=== PATIENT | female | born 1995 | race Caucasian/White ===

== ENCOUNTER 2022-02-28 12:55 | Emergency (ER) | payer SELFPAY | END 2022-02-28 14:43 | disposition home or self-care (01) | LOC: CSHERS 12:55 | DX: B86 Scabies (principal) | CPT/HCPCS: 99282 ==

== ENCOUNTER 2022-08-10 09:53 | Emergency (ER) | payer SELFPAY | END 2022-08-10 10:55 | disposition home or self-care (01) | LOC: CSHERS 09:53 | DX: B02.9 Zoster without complications (principal) | CPT/HCPCS: 99282 ==

== ENCOUNTER 2023-04-02 13:49 | Emergency (ER) | payer SELFPAY | END 2023-04-02 15:03 | disposition home or self-care (01) | LOC: CSHERS 13:49 | DX: M65.4 Radial styloid tenosynovitis [de Quervain] (principal) | CPT/HCPCS: 29125 ==

== ENCOUNTER 2023-04-21 09:51 | Emergency (ER) | payer SELFPAY ==
[2023-04-21] MEDS ORDERED: Iopamidol 300 61% 100 ML VIAL FS ONE (10:40)
[2023-04-21] MEDS ORDERED: Proparacaine 0.5% Opth 15 ML BOT ONE (11:59)
[2023-04-21] MEDS ORDERED: Ketorolac Tromethamine 30 MG/ML VIAL ONE (11:59)
[2023-04-21] MEDS ORDERED: Fluorescein Opthalmic Strip ONE (11:59)
[2023-04-21 12:29] LABS: #Basophils 0.1 10x3/uL (0.0-0.2); #Eosinphils 0.1 10x3/uL (0.0-0.5); #Monocytes 0.6 10x3/uL (0.0-1.1); #Neutrophils 6.9 10x3/uL (1.5-8.4); %Basophils 0.6 % (0.0-2.0); %Eosinophils 0.7 % (0.0-6.0); %Lymphocytes 22.2 % (18.0-47.0); %Monocytes 5.7 % (0.0-10.0); %Neutrophils 70.6 % (40.0-75.0); Hemoglobin 12.2 g/dL (12.0-15.5); Mean Corpuscular Hemoglobin 28.1 pg (27.0-33.0); Mean Corpuscular Volume 85.3 fl (81.6-98.3); Mean Platelet Volume 11.1 fl (7.4-10.4); Platelet Count 346 10x3/uL (150-450); Red Blood Cell (RBC) Count 4.34 10x6/uL (3.90-5.03); White Blood Cell (WBC) Count 9.8 10x3/uL (3.5-10.5)
[2023-04-21 12:35] LABS: Pregnancy Test - Urine (BHCG) Negative (Negative); Pregu Control Background? CLEAR/WHITE (CLR/WHITE); Pregu Control Bar Appear? YES (CONTROL BAR)
[2023-04-21 12:41] LABS: ALT (SGPT) 9 U/L (8-55); AST (SGOT) 12 U/L (5-34); Albumin 4.3 g/dL (3.5-5.0); Alkaline Phosphatase 66 U/L (40-110); Anion Gap 15 mmol/L (10-20); BUN (Urea Nitrogen) 6 mg/dL (7.0-18.7); Bilirubin, Total 0.4 mg/dL (0.2-1.2); Calc. Creatinine Clearance 0 mL/min (70-130); Calcium 9.7 mg/dL (7.8-10.44); Carbon Dioxide 25 mmol/L (22-29); Chloride 104 mmol/L (98-107); Estimated GFR 110; Globulin 3.7 g/dL (2.4-3.5); Glucose 102 mg/dL (70-105); Potassium 4.2 mmol/L (3.5-5.1); Sodium 140 mmol/L (136-145)
== END 2023-04-21 14:39 | disposition home or self-care (01) ==
LOC: CSHERS 09:51
DX: H04.322 Acute dacryocystitis of left lacrimal passage (principal); J32.9 Chronic sinusitis, unspecified
CPT/HCPCS: 36415; 70481; 80053; 81025; 85025; 96372; J1885; Q9967

== ENCOUNTER 2023-08-20 13:39 | Emergency (ER) | payer OTHER ==
[2023-08-20] MEDS ORDERED: Ondansetron PF 4 MG/2 ML Vial ONE (15:32)
[2023-08-20] MEDS ORDERED: Ketorolac Tromethamine 30 MG (1 mL) VIAL ONE (15:32)
[2023-08-20 15:58] LABS: #Basophils 0.1 10x3/uL (0.0-0.2); #Eosinphils 0.1 10x3/uL (0.0-0.5); #Monocytes 0.4 10x3/uL (0.0-1.1); %Basophils 0.8 % (0.0-2.0); %Eosinophils 2.1 % (0.0-6.0); %Lymphocytes 31.4 % (18.0-47.0); %Monocytes 6.3 % (0.0-10.0); %Neutrophils 59.2 % (40.0-75.0); Hematocrit 40.4 % (34.9-44.5); Hemoglobin 13.4 g/dL (12.0-15.5); Mean Corpuscular HGB CONC 33.2 g/dL (32.0-36.0); Mean Corpuscular Hemoglobin 28.1 pg (27.0-33.0); Mean Corpuscular Volume 84.7 fl (81.6-98.3); Mean Platelet Volume 12.8 fl (7.4-10.4); Platelet Count 234 10x3/uL (150-450); RBC Distribution Width 12.8 % (11.5-14.5); Red Blood Cell (RBC) Count 4.77 10x6/uL (3.90-5.03); White Blood Cell (WBC) Count 6.7 10x3/uL (3.5-10.5)
[2023-08-20 16:04] LABS: BHCG - Serum Negative (NEGATIVE); Pregs Control Background? CLEAR/WHITE (CLR/WHITE); Pregs Control Bar Appear? YES (CONTROL BAR)
[2023-08-20 16:11] LABS: ALT (SGPT) 26 U/L (8-55); AST (SGOT) 25 U/L (5-34); Albumin 4.9 g/dL (3.5-5.0); Alkaline Phosphatase 62 U/L (40-110); Anion Gap 16 mmol/L (10-20); BUN (Urea Nitrogen) 11 mg/dL (7.0-18.7); Bilirubin, Total 0.8 mg/dL (0.2-1.2); CK (CPK) 85 U/L (29-168); Calc. Creatinine Clearance 0 mL/min (70-130); Calcium 9.7 mg/dL (7.8-10.44); Carbon Dioxide 24 mmol/L (22-29); Chloride 104 mmol/L (98-107); Estimated GFR 102; Globulin 3.2 g/dL (2.4-3.5); Glucose 88 mg/dL (70-105); Lipase 31 U/L (8-78); Potassium 4.8 mmol/L (3.5-5.1); Protein, Total 8.1 g/dL (6.0-8.3); Sodium 139 mmol/L (136-145)
[2023-08-20 16:17] LABS: Troponin I Less than 0.010 ng/mL (< 0.028)
[2023-08-20 16:25] LABS: Bilirubin Neg (Negative); Blood, Urine 250 (Negative); Clarity Slightly Cloudy (Clear); Glucose, Urine (Dipstick) Normal (Negative); Ketone, Urine 15 mg/dL (Negative); Leukocyte 100 (Negative); Nitrite Negative (Negative); Protein, Urine (Dipstick) 30 mg/dl (Neg-Trace); Specific Gravity, Urine 1.015 (1.005-1.030); Urobilinogen Normal mg/dL (Less than 2)
[2023-08-20 16:46] LABS: CAUTI Indications for Culture Pelvic or flank pain; RBC/HPF 21-50 HPF (0-3)
[2023-08-20 16:47] LABS: Bacteria/HPF 2+ HPF (None Seen); Mucous/LPF 1+ LPF (<2+)
[2023-08-20 16:48] LABS: Urine Culture Reflex No No
[2023-08-20] MEDS ORDERED: Acetaminophen 500 MG TAB ONE (17:41)
== END 2023-08-20 20:02 | disposition home or self-care (01) ==
LOC: CSHERS 13:39
DX: R09.1 Pleurisy (principal)
CPT/HCPCS: 36415; 71045; 71275; 74177; 80053; 81001; 82550; 83605; 83690; 84484; 84703; 85025; 85379; 93005; 96365; 96375; J1885; J2405